=== PATIENT | male | born 1960 | race African-American/Black ===

== ENCOUNTER 2019-11-07 08:30 | Inpatient (IN) ==
[2019-11-07] MEDS ORDERED: SODIUM CHLORIDE 0.9% 1,000 ML IV STA (08:51)
[2019-11-07 09:13] LABS: Basophils # 0.1 10*3/uL (0.0-0.2); Basophils % 0.7 % (0.0-0.8); Eosinophils # 0.1 10*3/uL (0.0-0.87); Hematocrit 36.8 VOL% (42.0-52.0); Hemoglobin 12.2 GM/DL (14.0-18.0); Immature Granulocytes % 0.4 %; Immature Granulocytes Absolute 0.03 #; Lymphocytes # 1.4 10*3/uL (1.4-4.0); Lymphocytes % 18.9 % (21.2-54.2); Mean Corpuscular HGB Conc 33.2 GM/DL (32-36); Mean Corpuscular Volume 81.4 FL (87-102); Mean Platelet Volume 8.8 FL (9.6-12.0); Monocytes % 12.2 % (1.7-12.7); Neutrophils % 66.8 % (38.7-73.9); Platelet Count 474 T/CUMM (130-400); Red Blood Count 4.52 MC/CUMM (3.8-5.5); Red Cell Distribution Width 15.8 % (9.3-17.3); White Blood Count 7.2 T/CUMM (4-12)
[2019-11-07 09:21] LABS: PT Patient Result 10.4 SECS (9.6-12.2); Partial Thromboplastin Time 28.4 SECS (20.8-36.0)
[2019-11-07 09:39] LABS: Albumin 2.9 G/DL (3.4-5.0); Bilirubin,Total 0.5 MG/DL (0.2-1.0); Calcium 10.5 MG/DL (8.5-10.1); Osmolality,Calculated 251.4 MOS/KG (273-304); Total Protein 8.7 G/DL (6.4-8.3)
[2019-11-07 11:28] LABS: Apearance,Urine CLEAR (Clear); Bacteria,Urine Occasional /HPF (Few); Bilirubin,Urine Negative (Negative); Blood, Urine Negative (Negative); Glucose,Urine (UA) Negative (Negative); Ketones,Urine 5 mg/dL (Negative); Nitrite,Urine Negative (Negative); Protein,Urine Negative; RBC,Urine 2 /HPF (0-4); Squamous Epithelial Cell,Urine Occasional /HPF (0-10); Urine Color Straw (Yellow); Urine Specific Gravity 1.023 (1.001-1.035); Urine Urobilinogen < 2.0 EU/DL (0.2-1.0); WBC,Urine <1 /HPF (0-6)
[2019-11-07] MEDS: SODIUM CHLORIDE 0.9% 1,000 ML IV SCH (12:05)
[2019-11-08] MEDS: SODIUM CHLORIDE 0.9% 1,000 ML IV SCH ×5 (00:15→23:40)
[2019-11-08 05:25] LABS: Basophils # 0.1 10*3/uL (0.0-0.2); Eosinophils # 0.1 10*3/uL (0.0-0.87); Eosinophils % 0.9 % (0.00-10.9); Hematocrit 32.3 VOL% (42.0-52.0); Hemoglobin 10.5 GM/DL (14.0-18.0); Immature Granulocytes % 0.4 %; Immature Granulocytes Absolute 0.03 #; Lymphocytes # 1.3 10*3/uL (1.4-4.0); Lymphocytes % 16.9 % (21.2-54.2); Mean Corpuscular HGB Conc 32.5 GM/DL (32-36); Mean Corpuscular Volume 82.4 FL (87-102); Mean Platelet Volume 9.8 FL (9.6-12.0); Monocytes % 15.5 % (1.7-12.7); Neutrophils % 65.3 % (38.7-73.9); Platelet Count 449 T/CUMM (130-400); Red Blood Count 3.92 MC/CUMM (3.8-5.5); Red Cell Distribution Width 15.8 % (9.3-17.3)
[2019-11-08 05:54] LABS: Albumin 2.4 G/DL (3.4-5.0); Bilirubin,Total 0.7 MG/DL (0.2-1.0); Calcium 9.7 MG/DL (8.5-10.1); Osmolality,Calculated 264.2 MOS/KG (273-304); Risk Ratio 2.38; Thyroid Stimulating Hormone 0.885 uIU/ml (0.358-3.74); VLDL CHOLESTEROL 13.4 MG/DL
[2019-11-08] MEDS: POTASSIUM CHLORIDE RIDER 10 MEQ in PREMIX 1 EACH IV PRN ×4 (08:19→14:03)
[2019-11-08] MEDS: PANTOPRAZOLE 40 MG TABLET PO SCH (09:02)
[2019-11-08] MEDS ORDERED: MAGNESIUM SULF RIDER 4 GM in PREMIX 1 EACH IV PRN (10:40)
[2019-11-08] MEDS ORDERED: LIDOCAINE 4% TOP SOLN 50 ML BOTTLE ONE (11:29)
[2019-11-08] MEDS ORDERED: EPINEPHrine 1 MG/ML VIAL ONE (11:48)
[2019-11-08] MEDS ORDERED: LIDOCAINE 1%/EPI INJ 20 ML VIAL ONE (11:48)
[2019-11-08] MEDS ORDERED: SEVOFLURANE 1 UNIT/15 MINUTE INH ONE (13:06)
[2019-11-08] MEDS ORDERED: propofoL 200 MG/20 ML VIAL IV ONE (13:06)
[2019-11-08] MEDS ORDERED: SODIUM CHLORIDE 0.9% 250 ML IV ONE (13:08)
[2019-11-08] MEDS ORDERED: PHENYLEPHRINE 1 MG/10 ML SYRINGE IV ONE (13:08)
[2019-11-08] MEDS ORDERED: MIDAZOLAM 2 MG/2 ML VIAL ONE (13:08)
[2019-11-08] MEDS ORDERED: PHENYLEPHRINE 10 MG/1 ML VIAL IV ONE (13:08)
[2019-11-08] MEDS ORDERED: fentaNYL 100 MCG/2 ML VIAL ONE (13:10)
[2019-11-08] MEDS: MAGNESIUM SULF RIDER 2 GM in PREMIX 1 EACH IV PRN (14:03)
[2019-11-08] MEDS: hydrALAZINE 20 MG/1 ML VIAL IV PRN (15:12)
[2019-11-08] MEDS: NICOTINE 21 MG/24 HR PATCH TRANSDERM PRN (15:13)
[2019-11-09] MEDS: hydrALAZINE 20 MG/1 ML VIAL IV PRN (03:29)
[2019-11-09 04:58] LABS: Basophils # 0.1 10*3/uL (0.0-0.2); Basophils % 0.5 % (0.0-0.8); Eosinophils % 0.2 % (0.00-10.9); Hematocrit 31.8 VOL% (42.0-52.0); Hemoglobin 10.2 GM/DL (14.0-18.0); Immature Granulocytes % 0.5 %; Immature Granulocytes Absolute 0.05 #; Lymphocytes # 0.9 10*3/uL (1.4-4.0); Lymphocytes % 9.8 % (21.2-54.2); Mean Corpuscular HGB Conc 32.1 GM/DL (32-36); Mean Corpuscular Volume 83.7 FL (87-102); Mean Platelet Volume 9.7 FL (9.6-12.0); Monocytes % 12.1 % (1.7-12.7); Neutrophils % 76.9 % (38.7-73.9); Platelet Count 409 T/CUMM (130-400); Red Cell Distribution Width 16.2 % (9.3-17.3); White Blood Count 9.6 T/CUMM (4-12)
[2019-11-09 05:20] LABS: Alanine Aminotransferase < 9 U/L (16-61); Albumin 2.1 G/DL (3.4-5.0); Alkaline Phosphatase 66 U/L (45-117); Aspartate Amino Transferase 10 U/L (0-37); Blood Urea Nitrogen 5 MG/DL (7-18); Calcium 9.1 MG/DL (8.5-10.1); Estimated Glom Filtration Rate 109 ML/MIN; Glucose 75 MG/DL (74-106); Osmolality,Calculated 270.7 MOS/KG (273-304); Total Protein 6.5 G/DL (6.4-8.3)
[2019-11-09] MEDS: POTASSIUM CHLORIDE RIDER 10 MEQ in PREMIX 1 EACH IV PRN ×5 (05:39→12:22)
[2019-11-09] MEDS: SODIUM CHLORIDE 0.9% 1,000 ML IV SCH ×4 (08:54→22:11)
[2019-11-09] MEDS: PANTOPRAZOLE 40 MG TABLET PO SCH (09:19)
[2019-11-09] MEDS: NICOTINE 21 MG/24 HR PATCH TRANSDERM PRN (09:22)
[2019-11-09] MEDS: TAMSULOSIN 0.4 MG CAPSULE PO SCH (09:22)
[2019-11-10 05:44] LABS: Basophils # 0.1 10*3/uL (0.0-0.2); Basophils % 0.6 % (0.0-0.8); Eosinophils # 0.1 10*3/uL (0.0-0.87); Eosinophils % 1.2 % (0.00-10.9); Hematocrit 29.8 VOL% (42.0-52.0); Hemoglobin 9.7 GM/DL (14.0-18.0); Immature Granulocytes % 0.2 %; Immature Granulocytes Absolute 0.02 #; Lymphocytes % 12.3 % (21.2-54.2); Mean Corpuscular HGB Conc 32.6 GM/DL (32-36); Mean Corpuscular Volume 82.8 FL (87-102); Mean Platelet Volume 9.3 FL (9.6-12.0); Monocytes % 12.7 % (1.7-12.7); Platelet Count 372 T/CUMM (130-400); Red Cell Distribution Width 16.4 % (9.3-17.3); White Blood Count 8.4 T/CUMM (4-12)
[2019-11-10 05:47] LABS: PT Patient Result 10.9 SECS (9.6-12.2)
[2019-11-10 06:16] LABS: Alanine Aminotransferase < 9 U/L (16-61); Alkaline Phosphatase 58 U/L (45-117); Aspartate Amino Transferase 10 U/L (0-37); Blood Urea Nitrogen 6 MG/DL (7-18); Calcium 9.3 MG/DL (8.5-10.1); Estimated Glom Filtration Rate 109 ML/MIN; Glucose 84 MG/DL (74-106); Osmolality,Calculated 273.5 MOS/KG (273-304); Total Protein 6.4 G/DL (6.4-8.3)
[2019-11-10] MEDS: SODIUM CHLORIDE 0.9% 1,000 ML IV SCH ×3 (06:21→20:24)
[2019-11-10] MEDS: POTASSIUM CHLORIDE RIDER 10 MEQ in PREMIX 1 EACH IV PRN ×5 (06:46→10:56)
[2019-11-10] MEDS ORDERED: ceFAZolin 1,000 MG in SYRINGE 1 EACH IV ONE (08:00)
[2019-11-10] MEDS: hydrALAZINE 20 MG/1 ML VIAL IV PRN ×2 (09:48→19:13)
[2019-11-10] MEDS: TAMSULOSIN 0.4 MG CAPSULE PO SCH (10:37)
[2019-11-10] MEDS: PANTOPRAZOLE 40 MG TABLET PO SCH (10:38)
[2019-11-10] MEDS: LACTATED RINGERS 1,000 ML IV SCH (14:31)
[2019-11-11] MEDS: SODIUM CHLORIDE 0.9% 1,000 ML IV SCH ×4 (04:04→20:12)
[2019-11-11 05:42] LABS: Basophils % 0.4 % (0.0-0.8); Eosinophils # 0.1 10*3/uL (0.0-0.87); Eosinophils % 0.6 % (0.00-10.9); Hematocrit 28.1 VOL% (42.0-52.0); Hemoglobin 9.1 GM/DL (14.0-18.0); Immature Granulocytes % 0.3 %; Immature Granulocytes Absolute 0.03 #; Lymphocytes # 0.8 10*3/uL (1.4-4.0); Lymphocytes % 8.6 % (21.2-54.2); Mean Corpuscular HGB Conc 32.4 GM/DL (32-36); Mean Corpuscular Volume 83.9 FL (87-102); Mean Platelet Volume 9.4 FL (9.6-12.0); Monocytes % 9.5 % (1.7-12.7); Neutrophils % 80.6 % (38.7-73.9); Platelet Count 356 T/CUMM (130-400); Red Blood Count 3.35 MC/CUMM (3.8-5.5); Red Cell Distribution Width 16.5 % (9.3-17.3); White Blood Count 9.5 T/CUMM (4-12)
[2019-11-11 05:55] LABS: Calcium 8.8 MG/DL (8.5-10.1); Osmolality,Calculated 277.3 MOS/KG (273-304)
[2019-11-11] MEDS: POTASSIUM CHLORIDE RIDER 10 MEQ in PREMIX 1 EACH IV PRN ×5 (08:16→14:51)
[2019-11-11] MEDS ORDERED: METOPROLOL TARTRATE 25 MG TABLET PEG SCH (09:00)
[2019-11-11] MEDS: TAMSULOSIN 0.4 MG CAPSULE PO SCH (09:05)
[2019-11-11] MEDS: PANTOPRAZOLE 40 MG TABLET PO SCH (09:16)
[2019-11-11] MEDS: hydrALAZINE 20 MG/1 ML VIAL IV PRN (10:07)
[2019-11-11] MEDS: ACETAMINOPHEN 325 MG TABLET PO PRN (10:10)
[2019-11-11] MEDS: LACTATED RINGERS 1,000 ML IV SCH (10:40)
[2019-11-11] MEDS: NICOTINE 21 MG/24 HR PATCH TRANSDERM PRN (14:29)
[2019-11-11] MEDS: ALBUTEROL/IPRATROPIUM 3 ML NEB RESP TX SCH (20:32)
[2019-11-11] MEDS: POTASSIUM CHLORIDE 20 MEQ TABLET PO PRN (20:41)
[2019-11-11] MEDS: METOPROLOL TARTRATE 25 MG TABLET PEG SCH (20:42)
[2019-11-12] MEDS: ALBUTEROL/IPRATROPIUM 3 ML NEB RESP TX SCH ×7 (00:56→23:48)
[2019-11-12] MEDS: hydrALAZINE 20 MG/1 ML VIAL IV PRN ×3 (01:40→21:08)
[2019-11-12] MEDS: POTASSIUM CHLORIDE 20 MEQ TABLET PO PRN (01:41)
[2019-11-12] MEDS: SODIUM CHLORIDE 0.9% 1,000 ML IV SCH ×3 (03:21→20:17)
[2019-11-12] MEDS ORDERED: hydrALAZINE 20 MG/1 ML VIAL IV ONE (05:29)
[2019-11-12 06:21] LABS: Basophils % 0.5 % (0.0-0.8); Eosinophils % 0.4 % (0.00-10.9); Hematocrit 30.7 VOL% (42.0-52.0); Hemoglobin 10.2 GM/DL (14.0-18.0); Immature Granulocytes % 0.4 %; Immature Granulocytes Absolute 0.03 #; Lymphocytes # 0.5 10*3/uL (1.4-4.0); Lymphocytes % 7.4 % (21.2-54.2); Mean Corpuscular HGB Conc 33.2 GM/DL (32-36); Mean Corpuscular Volume 81.9 FL (87-102); Mean Platelet Volume 9.2 FL (9.6-12.0); Monocytes % 8.6 % (1.7-12.7); Neutrophils % 82.7 % (38.7-73.9); Platelet Count 371 T/CUMM (130-400); Red Blood Count 3.75 MC/CUMM (3.8-5.5); Red Cell Distribution Width 16.3 % (9.3-17.3); White Blood Count 7.3 T/CUMM (4-12)
[2019-11-12 06:29] LABS: Calcium 8.7 MG/DL (8.5-10.1); Osmolality,Calculated 275.5 MOS/KG (273-304)
[2019-11-12] MEDS ORDERED: POTASSIUM CHLORIDE 20 MEQ/15 ML UDCUP PO ONE (07:47)
[2019-11-12] MEDS ORDERED: SIMETHICONE DROPS 40 MG/0.6 ML 30 ML BOTTLE PO PRN (07:53)
[2019-11-12] MEDS: MORPHINE 4 MG/1 ML VIAL IV PRN ×2 (08:12→12:04)
[2019-11-12] MEDS: PANTOPRAZOLE 40 MG TABLET PO SCH (08:15)
[2019-11-12] MEDS: TAMSULOSIN 0.4 MG CAPSULE PO SCH (08:15)
[2019-11-12] MEDS: METOPROLOL TARTRATE 25 MG TABLET PEG SCH ×2 (08:16→20:17)
[2019-11-12] MEDS: POTASSIUM CHLORIDE RIDER 10 MEQ in PREMIX 1 EACH IV PRN ×8 (08:17→19:42)
[2019-11-12] MEDS ORDERED: SIMETHICONE CHEW 80 MG TABLET PO PRN (08:27)
[2019-11-12] MEDS: MAGNESIUM SULF RIDER 2 GM in PREMIX 1 EACH IV PRN (09:00)
[2019-11-12] MEDS: ONDANSETRON 4 MG/2 ML VIAL IV PRN (15:23)
[2019-11-13] MEDS: ALBUTEROL/IPRATROPIUM 3 ML NEB RESP TX SCH ×6 (03:01→23:33)
[2019-11-13] MEDS: SODIUM CHLORIDE 0.9% 1,000 ML IV SCH ×3 (04:40→21:05)
[2019-11-13 05:08] LABS: Basophils % 0.4 % (0.0-0.8); Eosinophils # 0.1 10*3/uL (0.0-0.87); Eosinophils % 0.7 % (0.00-10.9); Hematocrit 28.5 VOL% (42.0-52.0); Hemoglobin 9.4 GM/DL (14.0-18.0); Immature Granulocytes % 0.3 %; Immature Granulocytes Absolute 0.02 #; Lymphocytes # 0.6 10*3/uL (1.4-4.0); Lymphocytes % 7.3 % (21.2-54.2); Mean Corpuscular Volume 82.1 FL (87-102); Mean Platelet Volume 9.6 FL (9.6-12.0); Neutrophils % 74.3 % (38.7-73.9); Platelet Count 337 T/CUMM (130-400); Red Blood Count 3.47 MC/CUMM (3.8-5.5); Red Cell Distribution Width 16.3 % (9.3-17.3); White Blood Count 7.5 T/CUMM (4-12)
[2019-11-13 05:31] LABS: Hypochromasia 1+; Lymphocytes 11 % (20-55); Platelet Estimate Adequate; Segmented Neutrophils 75 % (50-85); Target Cells Few; Total Cells Counted 100
[2019-11-13 05:36] LABS: Calcium 8.1 MG/DL (8.5-10.1); Osmolality,Calculated 279.3 MOS/KG (273-304)
[2019-11-13 05:43] LABS: Prealbumin 3.6 MG/DL (20-40)
[2019-11-13] MEDS: METOPROLOL TARTRATE 25 MG TABLET PEG SCH ×2 (08:10→21:07)
[2019-11-13] MEDS: PANTOPRAZOLE 40 MG TABLET PO SCH (08:10)
[2019-11-13] MEDS: TAMSULOSIN 0.4 MG CAPSULE PO SCH (08:10)
[2019-11-13] MEDS: POTASSIUM CHLORIDE RIDER 10 MEQ in PREMIX 1 EACH IV PRN ×2 (08:10→09:11)
[2019-11-13] MEDS: MAGNESIUM SULF RIDER 2 GM in PREMIX 1 EACH IV PRN (08:11)
[2019-11-13] MEDS: NICOTINE 21 MG/24 HR PATCH TRANSDERM PRN (09:51)
[2019-11-13] MEDS: hydrALAZINE 20 MG/1 ML VIAL IV PRN (19:05)
[2019-11-13] MEDS: ACETAMINOPHEN 325 MG TABLET PO PRN (23:40)
[2019-11-14] MEDS: SODIUM CHLORIDE 0.9% 1,000 ML IV SCH ×4 (00:52→14:35)
[2019-11-14] MEDS: ALBUTEROL/IPRATROPIUM 3 ML NEB RESP TX SCH ×5 (03:10→19:19)
[2019-11-14 04:40] LABS: Basophils % 0.1 % (0.0-0.8); Eosinophils % 0.3 % (0.00-10.9); Immature Granulocytes % 0.3 %; Immature Granulocytes Absolute 0.02 #; Lymphocytes # 0.7 10*3/uL (1.4-4.0); Lymphocytes % 9.1 % (21.2-54.2); Mean Corpuscular HGB Conc 33.3 GM/DL (32-36); Mean Platelet Volume 9.3 FL (9.6-12.0); Monocytes % 16.8 % (1.7-12.7); Neutrophils % 73.4 % (38.7-73.9); Platelet Count 341 T/CUMM (130-400); Red Blood Count 3.66 MC/CUMM (3.8-5.5); Red Cell Distribution Width 16.4 % (9.3-17.3); White Blood Count 7.4 T/CUMM (4-12)
[2019-11-14 05:04] LABS: Band Neutrophils 3 % (0-10); Hypochromasia 1+; Lymphocytes 7 % (20-55); Segmented Neutrophils 72 % (50-85); Target Cells Few; Total Cells Counted 100
[2019-11-14 05:05] LABS: Anisocytosis 1+; Microcytosis 1+
[2019-11-14] MEDS: hydrALAZINE 20 MG/1 ML VIAL IV PRN ×2 (05:06→18:32)
[2019-11-14 05:15] LABS: Calcium 8.6 MG/DL (8.5-10.1); Osmolality,Calculated 280.1 MOS/KG (273-304)
[2019-11-14] MEDS: POTASSIUM CHLORIDE RIDER 10 MEQ in PREMIX 1 EACH IV PRN ×3 (06:21→09:49)
[2019-11-14] MEDS ORDERED: MAGNESIUM SULF RIDER 4 GM in PREMIX 1 EACH IV ONE (07:39)
[2019-11-14] MEDS: NICOTINE 21 MG/24 HR PATCH TRANSDERM PRN (08:45)
[2019-11-14] MEDS: POTASSIUM CHLORIDE 20 MEQ/15 ML UDCUP PER TUBE SCH ×3 (08:46→17:14)
[2019-11-14] MEDS: METOPROLOL TARTRATE 25 MG TABLET PEG SCH ×2 (08:47→20:52)
[2019-11-14] MEDS: PANTOPRAZOLE 40 MG TABLET PO SCH (08:47)
[2019-11-14] MEDS: TAMSULOSIN 0.4 MG CAPSULE PO SCH ×2 (08:47→20:52)
[2019-11-14] MEDS: MORPHINE 4 MG/1 ML VIAL IV PRN (08:50)
[2019-11-14 09:42] LABS: Apearance,Urine CLOUDY (Clear); Bacteria,Urine Occasional /HPF (Few); Bilirubin,Urine Negative (Negative); Blood, Urine Large mg/dL (Negative); Glucose,Urine (UA) Negative (Negative); Hyaline Casts,Urine 3 /LPF (0-3); Ketones,Urine 20 mg/dL (Negative); Mucus,Urine Occasional /LPF (Occasional); Nitrite,Urine Negative (Negative); Protein,Urine 30 MG/DL; RBC,Urine 408 /HPF (0-4); Squamous Epithelial Cell,Urine Occasional /HPF (0-10); Urine Color Yellow (Yellow); Urine Specific Gravity 1.019 (1.001-1.035); Urine Urobilinogen < 2.0 EU/DL (0.2-1.0); WBC,Urine 19 /HPF (0-6)
[2019-11-14] MEDS: PIPERACILLIN/TAZOBACTAM 3,375 MG in SODIUM CHLORIDE 0.9% 100 ML IV SCH ×2 (12:53→20:52)
[2019-11-14] MEDS ORDERED: POTASSIUM CHLORIDE 20 MEQ/15 ML UDCUP ONE (17:11)
[2019-11-15] MEDS: ALBUTEROL/IPRATROPIUM 3 ML NEB RESP TX SCH ×7 (00:56→23:40)
[2019-11-15] MEDS: PIPERACILLIN/TAZOBACTAM 3,375 MG in SODIUM CHLORIDE 0.9% 100 ML IV SCH ×3 (03:36→20:10)
[2019-11-15 04:46] LABS: Basophils % 0.6 % (0.0-0.8); Eosinophils % 0.6 % (0.00-10.9); Hematocrit 27.6 VOL% (42.0-52.0); Immature Granulocytes % 0.3 %; Immature Granulocytes Absolute 0.02 #; Lymphocytes # 0.9 10*3/uL (1.4-4.0); Lymphocytes % 12.1 % (21.2-54.2); Mean Corpuscular HGB Conc 32.6 GM/DL (32-36); Mean Corpuscular Volume 81.4 FL (87-102); Mean Platelet Volume 9.2 FL (9.6-12.0); Monocytes % 22.1 % (1.7-12.7); Neutrophils % 64.3 % (38.7-73.9); Platelet Count 335 T/CUMM (130-400); Red Blood Count 3.39 MC/CUMM (3.8-5.5); Red Cell Distribution Width 16.7 % (9.3-17.3); White Blood Count 7.1 T/CUMM (4-12)
[2019-11-15 05:09] LABS: Band Neutrophils 2 % (0-10); Eosinophils 1 % (0-10); Lymphocytes 8 % (20-55); Platelet Estimate Adequate; Segmented Neutrophils 65 % (50-85); Total Cells Counted 100
[2019-11-15 05:10] LABS: Hypochromasia 1+; Microcytosis Slight; Ovalocytes Slight
[2019-11-15 05:18] LABS: Calcium 8.3 MG/DL (8.5-10.1); Osmolality,Calculated 278.3 MOS/KG (273-304)
[2019-11-15] MEDS: PANTOPRAZOLE 40 MG TABLET PO SCH (09:39)
[2019-11-15] MEDS: TAMSULOSIN 0.4 MG CAPSULE PO SCH ×2 (09:39→20:10)
[2019-11-15] MEDS: METOPROLOL TARTRATE 25 MG TABLET PEG SCH ×2 (09:39→20:10)
[2019-11-15] MEDS: SODIUM CHLORIDE 0.9% 1,000 ML IV SCH ×2 (09:42→23:06)
[2019-11-15] MEDS: POTASSIUM CHLORIDE RIDER 10 MEQ in PREMIX 1 EACH IV PRN ×2 (09:47→10:54)
[2019-11-15] MEDS: MAGNESIUM SULF RIDER 2 GM in PREMIX 1 EACH IV PRN (09:48)
[2019-11-15] MEDS: hydrALAZINE 20 MG/1 ML VIAL IV PRN ×2 (14:15→20:35)
[2019-11-16] MEDS: hydrALAZINE 20 MG/1 ML VIAL IV PRN (03:07)
[2019-11-16] MEDS: ALBUTEROL/IPRATROPIUM 3 ML NEB RESP TX SCH ×5 (03:25→19:35)
[2019-11-16] MEDS: PIPERACILLIN/TAZOBACTAM 3,375 MG in SODIUM CHLORIDE 0.9% 100 ML IV SCH ×3 (05:09→20:13)
[2019-11-16 05:38] LABS: Basophils % 0.4 % (0.0-0.8); Eosinophils # 0.1 10*3/uL (0.0-0.87); Eosinophils % 0.8 % (0.00-10.9); Hematocrit 27.4 VOL% (42.0-52.0); Hemoglobin 9.2 GM/DL (14.0-18.0); Immature Granulocytes % 0.3 %; Immature Granulocytes Absolute 0.03 #; Lymphocytes % 10.8 % (21.2-54.2); Mean Corpuscular HGB Conc 33.6 GM/DL (32-36); Mean Corpuscular Volume 79.7 FL (87-102); Mean Platelet Volume 9.6 FL (9.6-12.0); Monocytes % 14.4 % (1.7-12.7); Neutrophils % 73.3 % (38.7-73.9); Platelet Count 370 T/CUMM (130-400); Red Blood Count 3.44 MC/CUMM (3.8-5.5); Red Cell Distribution Width 16.6 % (9.3-17.3); White Blood Count 9.5 T/CUMM (4-12)
[2019-11-16 06:15] LABS: Calcium 8.7 MG/DL (8.5-10.1); Osmolality,Calculated 279.1 MOS/KG (273-304)
[2019-11-16 06:17] LABS: Prealbumin < 3.0 MG/DL (20-40)
[2019-11-16] MEDS: MAGNESIUM SULF RIDER 2 GM in PREMIX 1 EACH IV PRN (06:27)
[2019-11-16] MEDS: POTASSIUM CHLORIDE 20 MEQ TABLET PO PRN ×4 (06:28→18:37)
[2019-11-16] MEDS: METOPROLOL TARTRATE 25 MG TABLET PEG SCH ×2 (09:09→20:13)
[2019-11-16] MEDS: PANTOPRAZOLE 40 MG TABLET PO SCH (09:09)
[2019-11-16] MEDS: TAMSULOSIN 0.4 MG CAPSULE PO SCH ×2 (09:09→20:13)
[2019-11-16] MEDS: POTASSIUM CHLORIDE INJ 30 MEQ in SODIUM CHLORIDE 0.9% 1,000 ML IV SCH (13:18)
[2019-11-17] MEDS: ALBUTEROL/IPRATROPIUM 3 ML NEB RESP TX SCH ×7 (00:15→23:45)
[2019-11-17 05:02] LABS: Calcium 8.6 MG/DL (8.5-10.1); Osmolality,Calculated 270.7 MOS/KG (273-304)
[2019-11-17] MEDS: PIPERACILLIN/TAZOBACTAM 3,375 MG in SODIUM CHLORIDE 0.9% 100 ML IV SCH ×3 (05:14→20:17)
[2019-11-17] MEDS: POTASSIUM CHLORIDE 20 MEQ TABLET PO PRN (05:49)
[2019-11-17] MEDS: MAGNESIUM SULF RIDER 2 GM in PREMIX 1 EACH IV PRN (05:49)
[2019-11-17] MEDS: POTASSIUM CHLORIDE INJ 30 MEQ in SODIUM CHLORIDE 0.9% 1,000 ML IV SCH ×4 (06:36→21:35)
[2019-11-17] MEDS: PANTOPRAZOLE 40 MG TABLET PO SCH (08:58)
[2019-11-17] MEDS: METOPROLOL TARTRATE 25 MG TABLET PEG SCH ×2 (08:58→20:17)
[2019-11-17] MEDS: TAMSULOSIN 0.4 MG CAPSULE PO SCH ×2 (08:58→20:17)
[2019-11-17] MEDS: ONDANSETRON 4 MG/2 ML VIAL IV PRN (15:12)
[2019-11-18] MEDS: ALBUTEROL/IPRATROPIUM 3 ML NEB RESP TX SCH ×5 (02:43→20:04)
[2019-11-18] MEDS: PIPERACILLIN/TAZOBACTAM 3,375 MG in SODIUM CHLORIDE 0.9% 100 ML IV SCH ×3 (04:00→20:41)
[2019-11-18] MEDS: TAMSULOSIN 0.4 MG CAPSULE PO SCH ×2 (10:26→20:41)
[2019-11-18] MEDS: METOPROLOL TARTRATE 25 MG TABLET PEG SCH ×2 (10:26→20:41)
[2019-11-18] MEDS: PANTOPRAZOLE 40 MG TABLET PO SCH (10:26)
[2019-11-18] MEDS: POTASSIUM CHLORIDE INJ 30 MEQ in SODIUM CHLORIDE 0.9% 1,000 ML IV SCH (11:58)
[2019-11-19] MEDS: ALBUTEROL/IPRATROPIUM 3 ML NEB RESP TX SCH ×7 (01:36→22:22)
[2019-11-19] MEDS: PIPERACILLIN/TAZOBACTAM 3,375 MG in SODIUM CHLORIDE 0.9% 100 ML IV SCH ×2 (05:27→13:14)
[2019-11-19] MEDS: POTASSIUM CHLORIDE INJ 30 MEQ in SODIUM CHLORIDE 0.9% 1,000 ML IV SCH ×3 (05:33→09:31)
[2019-11-19] MEDS: PANTOPRAZOLE 40 MG TABLET PO SCH (09:28)
[2019-11-19] MEDS: TAMSULOSIN 0.4 MG CAPSULE PO SCH ×2 (09:28→20:44)
[2019-11-19] MEDS: METOPROLOL TARTRATE 25 MG TABLET PEG SCH ×2 (09:28→20:44)
[2019-11-20] MEDS: ALBUTEROL/IPRATROPIUM 3 ML NEB RESP TX SCH ×5 (02:32→19:25)
[2019-11-20 05:13] LABS: Calcium 8.5 MG/DL (8.5-10.1); Prealbumin 5.3 MG/DL (20-40)
[2019-11-20] MEDS: MAGNESIUM SULF RIDER 2 GM in PREMIX 1 EACH IV PRN ×2 (06:23→08:50)
[2019-11-20] MEDS: POTASSIUM CHLORIDE 20 MEQ TABLET PO PRN ×4 (06:23→14:42)
[2019-11-20] MEDS: TAMSULOSIN 0.4 MG CAPSULE PO SCH ×2 (08:51→20:38)
[2019-11-20] MEDS: PANTOPRAZOLE 40 MG TABLET PO SCH (08:51)
[2019-11-20] MEDS: METOPROLOL TARTRATE 25 MG TABLET PEG SCH ×2 (08:51→20:38)
[2019-11-20] MEDS: POTASSIUM CHLORIDE 10 MEQ TABLET PO SCH (20:38)
[2019-11-21] MEDS: ALBUTEROL/IPRATROPIUM 3 ML NEB RESP TX SCH ×7 (00:20→23:10)
[2019-11-21] MEDS: TAMSULOSIN 0.4 MG CAPSULE PO SCH ×2 (09:13→20:31)
[2019-11-21] MEDS: METOPROLOL TARTRATE 25 MG TABLET PEG SCH ×2 (09:13→20:32)
[2019-11-21] MEDS: PANTOPRAZOLE 40 MG TABLET PO SCH (09:13)
[2019-11-21] MEDS: POTASSIUM CHLORIDE 10 MEQ TABLET PO SCH ×2 (09:13→20:32)
[2019-11-22] MEDS: ALBUTEROL/IPRATROPIUM 3 ML NEB RESP TX SCH ×6 (03:00→23:15)
[2019-11-22] MEDS: METOPROLOL TARTRATE 25 MG TABLET PEG SCH ×2 (09:41→21:39)
[2019-11-22] MEDS: PANTOPRAZOLE 40 MG TABLET PO SCH (09:41)
[2019-11-22] MEDS: POTASSIUM CHLORIDE 10 MEQ TABLET PO SCH ×2 (09:41→21:39)
[2019-11-22] MEDS: TAMSULOSIN 0.4 MG CAPSULE PO SCH ×2 (09:41→21:39)
[2019-11-23] MEDS: ALBUTEROL/IPRATROPIUM 3 ML NEB RESP TX SCH ×4 (02:50→18:17)
[2019-11-23 05:23] LABS: Calcium 8.4 MG/DL (8.5-10.1); Osmolality,Calculated 266.1 MOS/KG (273-304)
[2019-11-23] MEDS: MAGNESIUM SULF RIDER 2 GM in PREMIX 1 EACH IV PRN (05:37)
[2019-11-23] MEDS: POTASSIUM CHLORIDE 20 MEQ TABLET PO PRN ×3 (05:37→12:15)
[2019-11-23] MEDS: METOPROLOL TARTRATE 25 MG TABLET PEG SCH (08:47)
[2019-11-23] MEDS: PANTOPRAZOLE 40 MG TABLET PO SCH (08:47)
[2019-11-23] MEDS: TAMSULOSIN 0.4 MG CAPSULE PO SCH (08:48)
[2019-11-23] MEDS: POTASSIUM CHLORIDE 10 MEQ TABLET PO SCH (08:48)
[2019-11-23 16:01] VITALS: BP 120/87
== END 2019-11-23 18:53 | disposition home health service (06) | DRG 11 ==
LOC: N.ED 08:30 → SUATTDRO 11:59 → N.EDINP 11:59 → N.4E 13:12 → N.CC 11-08 13:39 → N.4E 11-19 17:01
PROVIDERS: ADMIT Internal Medicine; ATTEND Emergency Medicine
PROC: EGDWPEG (ICD-10-PCS; 2019-11-10 12:20)

== ENCOUNTER 2019-12-12 02:28 | Observation (INO) ==
[2019-12-12] MEDS ORDERED: ONDANSETRON 4 MG/2 ML VIAL IV PRN (03:37)
[2019-12-12] MEDS ORDERED: ALBUTEROL/IPRATROPIUM 3 ML NEB RESP TX PRN (03:37)
[2019-12-12] MEDS ORDERED: hydrALAZINE 20 MG/1 ML VIAL IV STA (03:41)
[2019-12-12] MEDS: DEXTROSE 5% NACL 0.45% 1,000 ML IV SCH ×3 (04:45→13:18)
[2019-12-12 05:03] LABS: Basophils # 0.1 10*3/uL (0.0-0.2); Basophils % 0.4 % (0.0-0.8); Eosinophils # 0.2 10*3/uL (0.0-0.87); Eosinophils % 1.3 % (0.00-10.9); Hematocrit 27.8 VOL% (42.0-52.0); Immature Granulocytes % 0.3 %; Immature Granulocytes Absolute 0.03 #; Lymphocytes # 2.7 10*3/uL (1.4-4.0); Lymphocytes % 23.6 % (21.2-54.2); Mean Corpuscular HGB Conc 32.4 GM/DL (32-36); Mean Corpuscular Volume 79.4 FL (87-102); Monocytes % 13.8 % (1.7-12.7); Neutrophils % 60.6 % (38.7-73.9); Platelet Count 564 T/CUMM (130-400); White Blood Count 11.4 T/CUMM (4-12)
[2019-12-12] MEDS ORDERED: INFLUENZA VIRUS VACCINE 0.5 ML SYRINGE IM ONE (05:12)
[2019-12-12 05:32] LABS: Alanine Aminotransferase 10 U/L (16-61); Albumin 2.4 G/DL (3.4-5.0); Alkaline Phosphatase 66 U/L (45-117); Aspartate Amino Transferase 10 U/L (0-37); Bilirubin,Total < 0.39 MG/DL (0.2-1.0); Blood Urea Nitrogen 13 MG/DL (7-18); Calcium 9.8 MG/DL (8.5-10.1); Estimated Glom Filtration Rate 109 ML/MIN; Glucose 89 MG/DL (74-106); Osmolality,Calculated 271.8 MOS/KG (273-304); Total Protein 7.7 G/DL (6.4-8.3)
[2019-12-12] MEDS ORDERED: LIDOCAINE 1%/EPI INJ 20 ML VIAL ONE (06:15)
[2019-12-12] MEDS ORDERED: KETOROLAC 15 MG/1 ML VIAL IV ONE (09:36)
[2019-12-12] MEDS ORDERED: DIAZEPAM 5 MG TABLET PO ONE (09:36)
[2019-12-12] MEDS ORDERED: KETAMINE 500 MG/10 ML VIAL ONE (13:15)
[2019-12-12 18:14] VITALS: BP 136/74
== END 2019-12-12 18:03 | disposition home or self-care (01) ==
LOC: N.ED 02:28 → N.EDINP 02:28 → N.3E 04:06
PROVIDERS: ADMIT Otolaryngology; ATTEND Otolaryngology

== ENCOUNTER 2020-10-10 05:53 | Inpatient (IN) ==
[2020-10-07 13:13] LABS: Calcium 9.2 MG/DL (8.5-10.1); Osmolality,Calculated 278.7 MOS/KG (273-304)
[2020-10-07 13:32] LABS: Basophils % 0.5 % (0.0-0.8); Eosinophils # 0.1 10*3/uL (0.0-0.87); Eosinophils % 1.8 % (0.00-10.9); Hematocrit 29.7 VOL% (42.0-52.0); Hemoglobin 10.2 GM/DL (14.0-18.0); Immature Granulocytes % 0.2 %; Immature Granulocytes Absolute 0.01 #; Lymphocytes # 0.7 10*3/uL (1.4-4.0); Lymphocytes % 12.5 % (21.2-54.2); Mean Corpuscular HGB Conc 34.3 GM/DL (32-36); Mean Corpuscular Volume 93.4 FL (87-102); Mean Platelet Volume 10.1 FL (9.6-12.0); Monocytes % 18.1 % (1.7-12.7); Neutrophils % 66.9 % (38.7-73.9); Platelet Count 271 T/CUMM (130-400); Red Blood Count 3.18 MC/CUMM (3.8-5.5); Red Cell Distribution Width 16.4 % (9.3-17.3); White Blood Count 5.7 T/CUMM (4-12)
[2020-10-07 14:36] LABS: Lymphocytes 14 % (20-55); Nucleated Red Blood Cells 1 (0-5); Platelet Estimate Normal; Segmented Neutrophils 74 % (50-85); Target Cells Slight; Total Cells Counted 100
[2020-10-10] MEDS ORDERED: LIDOCAINE 1% 5 ML VIAL ONE (06:02)
[2020-10-10] MEDS ORDERED: DEXAMETHASONE 4 MG/1 ML VIAL ONE (06:02)
[2020-10-10] MEDS ORDERED: ROPIVACAINE 0.5% 30 ML VIAL ONE (06:02)
[2020-10-10] MEDS ORDERED: ALVIMOPAN 12 MG CAPSULE PO ONE (06:30)
[2020-10-10] MEDS ORDERED: cefOXitin 1,000 MG in SYRINGE 1 EACH IV ONE (06:30)
[2020-10-10] MEDS ORDERED: MIDAZOLAM 2 MG/2 ML VIAL ONE (07:00)
[2020-10-10] MEDS ORDERED: LACTATED RINGERS 1,000 ML IV SCH (07:00)
[2020-10-10] MEDS ORDERED: DEXMEDETOMIDINE 200 MCG/2 ML VIAL ONE (07:00)
[2020-10-10] MEDS ORDERED: SEVOFLURANE 1 UNIT/15 MINUTE INH ONE ×8 (08:17→11:04)
[2020-10-10] MEDS ORDERED: PHENYLEPHRINE 1 MG/10 ML SYRINGE IV ONE (08:17)
[2020-10-10] MEDS ORDERED: ONDANSETRON 4 MG/2 ML VIAL ONE ×2 (08:17→11:03)
[2020-10-10] MEDS ORDERED: LACTATED RINGERS 1,000 ML IV ONE ×2 (08:17→10:05)
[2020-10-10] MEDS ORDERED: ROCURONIUM 50 MG/5 ML VIAL IV ONE ×2 (08:18→10:06)
[2020-10-10] MEDS ORDERED: LIDOCAINE 2% 5 ML VIAL ONE (08:18)
[2020-10-10] MEDS ORDERED: propofoL 200 MG/20 ML VIAL IV ONE (08:18)
[2020-10-10] MEDS ORDERED: fentaNYL 100 MCG/2 ML VIAL ONE (08:34)
[2020-10-10] MEDS ORDERED: NEOSTIGMINE 10 MG/10 ML VIAL ONE (10:17)
[2020-10-10] MEDS ORDERED: GLYCOPYRROLATE 0.4 MG/2 ML VIAL ONE (10:17)
[2020-10-10] MEDS ORDERED: SUGAMMADEX 200 MG/2 ML VIAL IV ONE (10:40)
[2020-10-10] MEDS ORDERED: ONDANSETRON 4 MG/2 ML VIAL IV PRN ×2 (10:55→11:05)
[2020-10-10] MEDS ORDERED: MEPERIDINE 25 MG/1 ML VIAL ONE (11:03)
[2020-10-10] MEDS ORDERED: MEPERIDINE 25 MG/1 ML VIAL IV PRN (11:05)
[2020-10-10] MEDS ORDERED: diphenhydrAMINE 50 MG/1 ML VIAL IV PRN (11:05)
[2020-10-10] MEDS ORDERED: PROMETHAZINE INJ 25 MG in SODIUM CHLORIDE 0.9% 50 ML IV PRN (11:05)
[2020-10-10 11:13] LABS: Bilirubin,Urine Negative (Negative); Blood, Urine Negative (Negative); Glucose,Urine (UA) Negative (Negative); Ketones,Urine Negative (Negative); Nitrite,Urine Negative (Negative); Protein,Urine Negative; RBC,Urine <1 /HPF (0-4); Urine Appearance CLEAR (Clear); Urine Color Yellow (Yellow); Urine Specific Gravity 1.009 (1.001-1.035); Urine Urobilinogen < 2.0 EU/DL (0.2-1.0); WBC,Urine <1 /HPF (0-6)
[2020-10-10] MEDS: HYDROmorphone 2 MG/1 ML VIAL IV PRN ×9 (11:15→23:46)
[2020-10-10] MEDS: DEXTROSE 5% LACTATED RINGERS 1,000 ML IV SCH ×2 (11:48→20:34)
[2020-10-10] MEDS ORDERED: INFLUENZA VIRUS VACCINE 0.5 ML SYRINGE IM ONE (13:17)
[2020-10-10 13:52] LABS: Hematocrit 32.1 VOL% (42.0-52.0); Hemoglobin 10.7 GM/DL (14.0-18.0)
[2020-10-10] MEDS ORDERED: ALBUTEROL 2.5 MG/3 ML NEB RESP TX PRN (14:09)
[2020-10-10] MEDS: cefOXitin 2,000 MG in SYRINGE 1 EACH IV SCH ×2 (14:19→20:51)
[2020-10-10 15:39] LABS: Basophils % 0.2 % (0.0-0.8); Eosinophils % 0.1 % (0.00-10.9); Hemoglobin 9.6 GM/DL (14.0-18.0); Immature Granulocytes % 0.4 %; Immature Granulocytes Absolute 0.04 #; Lymphocytes # 0.4 10*3/uL (1.4-4.0); Lymphocytes % 4.3 % (21.2-54.2); Mean Corpuscular HGB Conc 33.1 GM/DL (32-36); Mean Corpuscular Volume 95.1 FL (87-102); Mean Platelet Volume 8.4 FL (9.6-12.0); Monocytes % 10.8 % (1.7-12.7); Neutrophils % 84.2 % (38.7-73.9); Platelet Count 299 T/CUMM (130-400); Red Blood Count 3.05 MC/CUMM (3.8-5.5); Red Cell Distribution Width 16.2 % (9.3-17.3); White Blood Count 9.8 T/CUMM (4-12)
[2020-10-10 16:05] LABS: Calcium 8.5 MG/DL (8.5-10.1); Osmolality,Calculated 279.8 MOS/KG (273-304)
[2020-10-10 16:45] LABS: Band Neutrophils 2 % (0-10); Lymphocytes 4 % (20-55); Segmented Neutrophils 80 % (50-85); Total Cells Counted 100
[2020-10-10 16:47] LABS: Anisocytosis 1+; Microcytosis Slight; Platelet Estimate Adequate
[2020-10-10 18:42] LABS: Hematocrit 28.1 VOL% (42.0-52.0); Hemoglobin 9.4 GM/DL (14.0-18.0)
[2020-10-10] MEDS: diphenhydrAMINE 50 MG/1 ML VIAL IV PRN (20:34)
[2020-10-11] MEDS: HYDROmorphone 2 MG/1 ML VIAL IV PRN ×6 (02:07→21:36)
[2020-10-11] MEDS: cefOXitin 2,000 MG in SYRINGE 1 EACH IV SCH (04:27)
[2020-10-11] MEDS ORDERED: cefOXitin 2,000 MG in SYRINGE 1 EACH IV SCH (04:30)
[2020-10-11] MEDS: DEXTROSE 5% LACTATED RINGERS 1,000 ML IV SCH ×2 (04:31→14:29)
[2020-10-11] MEDS: diphenhydrAMINE 50 MG/1 ML VIAL IV PRN ×2 (05:44→21:55)
[2020-10-11 05:56] LABS: Basophils % 0.2 % (0.0-0.8); Eosinophils % 0.1 % (0.00-10.9); Hematocrit 24.6 VOL% (42.0-52.0); Hemoglobin 8.4 GM/DL (14.0-18.0); Immature Granulocytes % 0.6 %; Immature Granulocytes Absolute 0.08 #; Lymphocytes # 0.7 10*3/uL (1.4-4.0); Lymphocytes % 5.2 % (21.2-54.2); Mean Corpuscular HGB Conc 34.1 GM/DL (32-36); Mean Corpuscular Volume 92.8 FL (87-102); Mean Platelet Volume 8.6 FL (9.6-12.0); Neutrophils % 82.9 % (38.7-73.9); Platelet Count 257 T/CUMM (130-400); Red Blood Count 2.65 MC/CUMM (3.8-5.5); Red Cell Distribution Width 16.1 % (9.3-17.3)
[2020-10-11 06:16] LABS: Calcium 8.3 MG/DL (8.5-10.1); Osmolality,Calculated 277.7 MOS/KG (273-304)
[2020-10-11] MEDS: ENOXAPARIN 40 MG/0.4 ML SYRINGE SUBCUT SCH (06:24)
[2020-10-11 07:51] LABS: Band Neutrophils 11 % (0-10); Lymphocytes 3 % (20-55); Segmented Neutrophils 78 % (50-85); Total Cells Counted 100
[2020-10-11 07:52] LABS: Hypochromasia 2+; Microcytosis 1+; Platelet Estimate Normal
[2020-10-11] MEDS: POTASSIUM PHOS/SOD PHOS 250 MG TABLET PO SCH ×3 (09:47→21:27)
[2020-10-11] MEDS: PANTOPRAZOLE 40 MG VIAL IV SCH (09:47)
[2020-10-11] MEDS: HYDROcod/ACETAMIN 7.5-325 MG/15 ML UDCUP PO PRN ×4 (09:49→22:30)
[2020-10-11] MEDS ORDERED: ALBUTEROL 2.5 MG/3 ML NEB RESP TX PRN (11:00)
[2020-10-11] MEDS: NIFEdipine 10 MG CAPSULE PO SCH ×2 (16:00→21:27)
[2020-10-12] MEDS: DEXTROSE 5% LACTATED RINGERS 1,000 ML IV SCH ×3 (01:34→20:04)
[2020-10-12] MEDS: HYDROmorphone 2 MG/1 ML VIAL IV PRN ×4 (04:27→21:23)
[2020-10-12 05:43] LABS: Basophils % 0.3 % (0.0-0.8); Eosinophils # 0.1 10*3/uL (0.0-0.87); Eosinophils % 0.6 % (0.00-10.9); Hematocrit 22.4 VOL% (42.0-52.0); Hemoglobin 7.4 GM/DL (14.0-18.0); Immature Granulocytes % 0.8 %; Immature Granulocytes Absolute 0.08 #; Lymphocytes # 0.5 10*3/uL (1.4-4.0); Lymphocytes % 5.1 % (21.2-54.2); Mean Corpuscular Volume 94.5 FL (87-102); Mean Platelet Volume 8.9 FL (9.6-12.0); Monocytes % 13.2 % (1.7-12.7); Platelet Count 258 T/CUMM (130-400); Red Blood Count 2.37 MC/CUMM (3.8-5.5); White Blood Count 10.4 T/CUMM (4-12)
[2020-10-12 06:12] LABS: Albumin 2.7 G/DL (3.4-5.0); Bilirubin,Direct 0.1 MG/DL (0.0-0.20); Bilirubin,Indirect 0.5 MG/DL (0.0-1.0); Bilirubin,Total 0.6 MG/DL (0.2-1.0); Calcium 8.3 MG/DL (8.5-10.1); Osmolality,Calculated 271.8 MOS/KG (273-304); Total Protein 6.6 G/DL (6.4-8.3)
[2020-10-12] MEDS: ENOXAPARIN 40 MG/0.4 ML SYRINGE SUBCUT SCH (07:17)
[2020-10-12 08:38] LABS: Hypochromasia 2+; Lymphocytes 4 % (20-55); Platelet Estimate Normal; Segmented Neutrophils 85 % (50-85); Total Cells Counted 100
[2020-10-12 08:39] LABS: Anisocytosis Slight; Macrocytosis Slight
[2020-10-12] MEDS: HYDROcod/ACETAMIN 7.5-325 MG/15 ML UDCUP PO PRN ×3 (09:03→20:04)
[2020-10-12] MEDS: PANTOPRAZOLE 40 MG VIAL IV SCH (09:04)
[2020-10-12] MEDS: diphenhydrAMINE 50 MG/1 ML VIAL IV PRN ×3 (09:05→22:43)
[2020-10-12] MEDS: POTASSIUM PHOS/SOD PHOS 250 MG TABLET PO SCH ×3 (09:05→20:04)
[2020-10-12] MEDS: NIFEdipine 10 MG CAPSULE PO SCH ×3 (09:05→20:05)
[2020-10-12] MEDS ORDERED: SODIUM CHLORIDE 0.9% 1,000 ML IV PRN (12:05)
[2020-10-13] MEDS: HYDROmorphone 2 MG/1 ML VIAL IV PRN ×4 (01:50→21:26)
[2020-10-13] MEDS: HYDROcod/ACETAMIN 7.5-325 MG/15 ML UDCUP PO PRN ×3 (05:29→20:19)
[2020-10-13 07:36] LABS: Hematocrit 28.6 VOL% (42.0-52.0)
[2020-10-13] MEDS: NIFEdipine 10 MG CAPSULE PO SCH (08:10)
[2020-10-13] MEDS: ENOXAPARIN 40 MG/0.4 ML SYRINGE SUBCUT SCH (08:11)
[2020-10-13] MEDS: POTASSIUM PHOS/SOD PHOS 250 MG TABLET PO SCH ×3 (08:11→20:20)
[2020-10-13] MEDS: diphenhydrAMINE 50 MG/1 ML VIAL IV PRN (08:13)
[2020-10-13] MEDS: PANTOPRAZOLE 40 MG VIAL IV SCH (08:18)
[2020-10-13] MEDS: DEXTROSE 5% LACTATED RINGERS 1,000 ML IV SCH ×2 (12:58)
[2020-10-13] MEDS: hydrALAZINE 20 MG/1 ML VIAL IV PRN ×2 (16:01→21:26)
[2020-10-14] MEDS: DEXTROSE 5% LACTATED RINGERS 1,000 ML IV SCH ×2 (00:24→11:41)
[2020-10-14] MEDS: HYDROcod/ACETAMIN 7.5-325 MG/15 ML UDCUP PO PRN ×3 (00:24→21:35)
[2020-10-14] MEDS: HYDROmorphone 2 MG/1 ML VIAL IV PRN ×3 (05:45→17:26)
[2020-10-14] MEDS: PANTOPRAZOLE 40 MG VIAL IV SCH (09:14)
[2020-10-14] MEDS: POTASSIUM PHOS/SOD PHOS 250 MG TABLET PO SCH ×3 (09:14→21:23)
[2020-10-14] MEDS: hydroCHLOROthiazide 12.5 MG CAPSULE PO SCH (09:14)
[2020-10-14] MEDS: ENOXAPARIN 40 MG/0.4 ML SYRINGE SUBCUT SCH (09:14)
[2020-10-14] MEDS ORDERED: BISACODYL 10 MG SUPP RECTAL ONE (16:25)
[2020-10-14] MEDS: hydrALAZINE 20 MG/1 ML VIAL IV PRN (21:26)
[2020-10-15] MEDS: DEXTROSE 5% LACTATED RINGERS 1,000 ML IV SCH ×3 (01:26→21:37)
[2020-10-15 05:06] LABS: Basophils % 0.3 % (0.0-0.8); Eosinophils # 0.2 10*3/uL (0.0-0.87); Hematocrit 28.4 VOL% (42.0-52.0); Hemoglobin 9.7 GM/DL (14.0-18.0); Immature Granulocytes Absolute 0.06 #; Lymphocytes # 0.6 10*3/uL (1.4-4.0); Lymphocytes % 9.8 % (21.2-54.2); Mean Corpuscular HGB Conc 34.2 GM/DL (32-36); Mean Corpuscular Volume 86.9 FL (87-102); Mean Platelet Volume 8.7 FL (9.6-12.0); Monocytes % 17.3 % (1.7-12.7); Neutrophils % 67.6 % (38.7-73.9); Platelet Count 267 T/CUMM (130-400); Red Blood Count 3.27 MC/CUMM (3.8-5.5); Red Cell Distribution Width 15.8 % (9.3-17.3); White Blood Count 5.7 T/CUMM (4-12)
[2020-10-15 05:33] LABS: Albumin 2.8 G/DL (3.4-5.0); Bilirubin,Total 0.7 MG/DL (0.2-1.0); Calcium 8.2 MG/DL (8.5-10.1); Osmolality,Calculated 273.7 MOS/KG (273-304); Total Protein 6.9 G/DL (6.4-8.3)
[2020-10-15] MEDS ORDERED: POTASSIUM CHLORIDE RIDER 20 MEQ in PREMIX 1 EACH IV SCH (07:00)
[2020-10-15 07:12] LABS: Anisocytosis 1+; Band Neutrophils 7 % (0-10); Eosinophils 3 % (0-10); Hypochromasia 1+; Lymphocytes 13 % (20-55); Platelet Estimate Normal; Segmented Neutrophils 65 % (50-85); Target Cells Few; Total Cells Counted 100
[2020-10-15 07:13] LABS: Macrocytosis Slight
[2020-10-15] MEDS: HYDROmorphone 2 MG/1 ML VIAL IV PRN ×3 (07:47→21:48)
[2020-10-15] MEDS ORDERED: MAGNESIUM SULF RIDER 4 GM in PREMIX 1 EACH IV ONE (09:00)
[2020-10-15] MEDS ORDERED: MAGNESIUM SULF INJ 4 GM, POTASSIUM CHLORIDE INJ 50 MEQ in SODIUM CHLORIDE 0.9% 500 ML IV ONE (09:00)
[2020-10-15] MEDS: PANTOPRAZOLE 40 MG VIAL IV SCH (09:22)
[2020-10-15] MEDS: POTASSIUM PHOS/SOD PHOS 250 MG TABLET PO SCH ×3 (09:22→21:36)
[2020-10-15] MEDS: ENOXAPARIN 40 MG/0.4 ML SYRINGE SUBCUT SCH (09:22)
[2020-10-15] MEDS: hydroCHLOROthiazide 12.5 MG CAPSULE PO SCH (09:23)
[2020-10-15] MEDS: FERROUS SULFATE 300 MG/5 ML UDCUP PEG SCH ×2 (09:23→21:36)
[2020-10-15] MEDS: HYDROcod/ACETAMIN 7.5-325 MG/15 ML UDCUP PO PRN ×2 (09:41→16:24)
[2020-10-15] MEDS ORDERED: POTASSIUM CHLORIDE RIDER 10 MEQ in PREMIX 1 EACH IV ONE (14:00)
[2020-10-16 06:10] LABS: Basophils % 0.3 % (0.0-0.8); Eosinophils # 0.2 10*3/uL (0.0-0.87); Eosinophils % 3.1 % (0.00-10.9); Hematocrit 30.5 VOL% (42.0-52.0); Hemoglobin 10.4 GM/DL (14.0-18.0); Immature Granulocytes % 1.2 %; Immature Granulocytes Absolute 0.09 #; Lymphocytes # 0.6 10*3/uL (1.4-4.0); Lymphocytes % 8.2 % (21.2-54.2); Mean Corpuscular HGB Conc 34.1 GM/DL (32-36); Mean Corpuscular Volume 86.6 FL (87-102); Mean Platelet Volume 8.9 FL (9.6-12.0); Monocytes % 12.6 % (1.7-12.7); Neutrophils % 74.6 % (38.7-73.9); Platelet Count 344 T/CUMM (130-400); Red Blood Count 3.52 MC/CUMM (3.8-5.5); Red Cell Distribution Width 15.9 % (9.3-17.3); White Blood Count 7.5 T/CUMM (4-12)
[2020-10-16] MEDS ORDERED: MAGNESIUM SULF RIDER 4 GM in PREMIX 1 EACH IV ONE (06:34)
[2020-10-16 06:47] LABS: Albumin 3.2 G/DL (3.4-5.0); Bilirubin,Total 0.4 MG/DL (0.2-1.0); Calcium 8.5 MG/DL (8.5-10.1); Osmolality,Calculated 265.2 MOS/KG (273-304); Total Protein 7.6 G/DL (6.4-8.3)
[2020-10-16] MEDS: FERROUS SULFATE 300 MG/5 ML UDCUP PEG SCH (08:14)
[2020-10-16] MEDS: POTASSIUM PHOS/SOD PHOS 250 MG TABLET PO SCH ×2 (08:14→16:23)
[2020-10-16] MEDS: hydroCHLOROthiazide 12.5 MG CAPSULE PO SCH (08:14)
[2020-10-16] MEDS: ENOXAPARIN 40 MG/0.4 ML SYRINGE SUBCUT SCH (08:14)
[2020-10-16] MEDS: HYDROcod/ACETAMIN 7.5-325 MG/15 ML UDCUP PO PRN (08:15)
[2020-10-16] MEDS: PANTOPRAZOLE 40 MG VIAL IV SCH (08:19)
[2020-10-16] MEDS ORDERED: MAGNESIUM OXIDE 400 MG TABLET PO SCH ×2 (09:00)
[2020-10-16] MEDS ORDERED: BISACODYL 10 MG SUPP RECTAL ONE (09:00)
[2020-10-16] MEDS ORDERED: MAGNESIUM HYDROXIDE SUSP 30 ML UDCUP PO ONE (09:00)
[2020-10-16] MEDS ORDERED: POTASSIUM CHLORIDE 20 MEQ/15 ML UDCUP PO ONE (09:00)
[2020-10-16] MEDS: hydrALAZINE 20 MG/1 ML VIAL IV PRN (11:18)
[2020-10-16] MEDS: DEXTROSE 5% LACTATED RINGERS 1,000 ML IV SCH (14:25)
[2020-10-16 16:00] VITALS: BP 151/76
[2020-10-16] MEDS ORDERED: POTASSIUM CHLORIDE 20 MEQ/15 ML UDCUP PER TUBE SCH (21:00)
== END 2020-10-16 17:14 | disposition home or self-care (01) | DRG 231 ==
LOC: N.OR 05:53 → N.SDSINP 05:53 → N.ICU 05:53 → N.SDSINP 05:55 → N.ICU 12:59 → N.5E 10-11 13:07
PROVIDERS: ADMIT Surgery; ATTEND Surgery

== ENCOUNTER 2021-02-04 11:56 | Observation (INO) ==
[2021-02-04] MEDS ORDERED: DEXAMETHASONE 10 MG/1 ML VIAL IV STA (12:22)
[2021-02-04] MEDS ORDERED: FAMOTIDINE 20 MG/2 ML VIAL IV STA (12:23)
[2021-02-04] MEDS ORDERED: diphenhydrAMINE 50 MG/1 ML VIAL IV STA (12:23)
[2021-02-04 13:02] LABS: Basophils % 0.7 % (0.0-0.8); Eosinophils # 0.1 10*3/uL (0.0-0.87); Eosinophils % 1.5 % (0.00-10.9); Hematocrit 27.1 VOL% (42.0-52.0); Hemoglobin 8.8 GM/DL (14.0-18.0); Immature Granulocytes % 0.3 %; Immature Granulocytes Absolute 0.02 #; Lymphocytes # 0.9 10*3/uL (1.4-4.0); Lymphocytes % 13.9 % (21.2-54.2); Mean Corpuscular HGB Conc 32.5 GM/DL (32-36); Mean Corpuscular Volume 78.3 FL (87-102); Mean Platelet Volume 7.7 FL (9.6-12.0); Monocytes % 11.8 % (1.7-12.7); Neutrophils % 71.8 % (38.7-73.9); Platelet Count 437 T/CUMM (130-400); Red Blood Count 3.46 MC/CUMM (3.8-5.5); White Blood Count 6.1 T/CUMM (4-12)
[2021-02-04 13:23] LABS: Alanine Aminotransferase 12 U/L (16-61); Albumin 3.6 G/DL (3.4-5.0); Alkaline Phosphatase 74 U/L (45-117); Aspartate Amino Transferase 11 U/L (0-37); Bilirubin,Total < 0.39 MG/DL (0.2-1.0); Blood Urea Nitrogen 25 MG/DL (7-18); Calcium 9.7 MG/DL (8.5-10.1); Carbon Dioxide 29 MMOL/L (21-32); Estimated Glom Filtration Rate 70 ML/MIN; Glucose 83 MG/DL (74-106); Osmolality,Calculated 257.2 MOS/KG (273-304); Potassium 4.1 MMOL/L (3.5-5.1); Sodium 127 MMOL/L (136-145); Total Protein 8.5 G/DL (6.4-8.2)
[2021-02-04] MEDS ORDERED: DEXTROSE 50% 25 GM/50 ML VIAL IV PRN (15:26)
[2021-02-04] MEDS ORDERED: GLUCAGON 1 MG VIAL IM PRN (15:26)
[2021-02-04] MEDS: ENOXAPARIN 60 MG/0.6 ML SYRINGE SUBCUT SCH (18:09)
[2021-02-04] MEDS ORDERED: diphenhydrAMINE 50 MG/1 ML VIAL IV ONE (20:46)
[2021-02-04] MEDS: methylPREDNISolone SOD SUC 40 MG/1 ML VIAL IV SCH (21:13)
[2021-02-04] MEDS: FAMOTIDINE INJ 40 MG in SODIUM CHLORIDE 0.9% 100 ML IV SCH (21:18)
[2021-02-05] MEDS: methylPREDNISolone SOD SUC 40 MG/1 ML VIAL IV SCH ×4 (02:55→20:39)
[2021-02-05 04:07] LABS: Hematocrit 25.5 VOL% (42.0-52.0); Hemoglobin 8.4 GM/DL (14.0-18.0); Immature Granulocytes % 0.5 %; Immature Granulocytes Absolute 0.03 #; Lymphocytes # 0.6 10*3/uL (1.4-4.0); Mean Corpuscular HGB Conc 32.9 GM/DL (32-36); Mean Corpuscular Volume 77.3 FL (87-102); Neutrophils % 87.5 % (38.7-73.9); Platelet Count 458 T/CUMM (130-400); Red Cell Distribution Width 13.9 % (9.3-17.3); White Blood Count 5.6 T/CUMM (4-12)
[2021-02-05 04:27] LABS: Albumin 3.7 G/DL (3.4-5.0); Bilirubin,Total 0.4 MG/DL (0.2-1.0); Calcium 9.8 MG/DL (8.5-10.1); Osmolality,Calculated 261.2 MOS/KG (273-304); Potassium 4.3 MMOL/L (3.5-5.1); Total Protein 8.6 G/DL (6.4-8.2)
[2021-02-05] MEDS: ENOXAPARIN 60 MG/0.6 ML SYRINGE SUBCUT SCH ×2 (04:44→18:07)
[2021-02-05] MEDS ORDERED: amLODIPine 10 MG TABLET PEG SCH (09:00)
[2021-02-05] MEDS: FAMOTIDINE INJ 40 MG in SODIUM CHLORIDE 0.9% 100 ML IV SCH ×2 (10:32→21:02)
[2021-02-05] MEDS: VITAMIN E 1000 UNIT CAPSULE PEG SCH (10:33)
[2021-02-05] MEDS: CHOLECALCIFEROL 1,000 UNIT TABLET PEG SCH (16:52)
[2021-02-05] MEDS: CETIRIZINE 10 MG TABLET PEG SCH (16:52)
[2021-02-05] MEDS: carvediloL 3.125 MG TABLET PEG SCH (20:38)
[2021-02-06] MEDS: methylPREDNISolone SOD SUC 40 MG/1 ML VIAL IV SCH ×2 (03:13→09:30)
[2021-02-06] MEDS: ENOXAPARIN 60 MG/0.6 ML SYRINGE SUBCUT SCH (05:31)
[2021-02-06 05:57] LABS: Basophils % 0.1 % (0.0-0.8); Hematocrit 26.3 VOL% (42.0-52.0); Hemoglobin 8.6 GM/DL (14.0-18.0); Immature Granulocytes % 1.9 %; Immature Granulocytes Absolute 0.25 #; Lymphocytes # 0.5 10*3/uL (1.4-4.0); Lymphocytes % 3.6 % (21.2-54.2); Mean Corpuscular HGB Conc 32.7 GM/DL (32-36); Mean Corpuscular Volume 77.6 FL (87-102); Mean Platelet Volume 8.2 FL (9.6-12.0); Monocytes % 2.5 % (1.7-12.7); Neutrophils % 91.9 % (38.7-73.9); Platelet Count 478 T/CUMM (130-400); Red Blood Count 3.39 MC/CUMM (3.8-5.5); Red Cell Distribution Width 14.1 % (9.3-17.3); White Blood Count 13.3 T/CUMM (4-12)
[2021-02-06 06:19] LABS: Hypochromasia 1+; Lymphocytes 2 % (20-55); Microcytosis 1+; Platelet Estimate Adequate; Segmented Neutrophils 97 % (50-85); Total Cells Counted 100
[2021-02-06 06:24] LABS: Calcium 9.8 MG/DL (8.5-10.1); Osmolality,Calculated 263.5 MOS/KG (273-304); Potassium 4.5 MMOL/L (3.5-5.1)
[2021-02-06] MEDS ORDERED: SODIUM CHLORIDE 0.9% 500 ML IV ONE ×2 (06:54→07:00)
[2021-02-06] MEDS: VITAMIN E 1000 UNIT CAPSULE PEG SCH (09:32)
[2021-02-06] MEDS: CHOLECALCIFEROL 1,000 UNIT TABLET PEG SCH (09:33)
[2021-02-06] MEDS: CETIRIZINE 10 MG TABLET PEG SCH (09:33)
[2021-02-06] MEDS: carvediloL 3.125 MG TABLET PEG SCH (09:34)
[2021-02-06] MEDS: FAMOTIDINE INJ 40 MG in SODIUM CHLORIDE 0.9% 100 ML IV SCH (09:39)
[2021-02-06 12:23] VITALS: BP 117/56
== END 2021-02-06 13:30 | disposition home or self-care (01) ==
LOC: N.ED 11:56 → N.EDINP 11:56 → N.4E 16:01
PROVIDERS: ADMIT Hospitalist; ATTEND Hospitalist

== ENCOUNTER 2021-05-19 08:29 | Inpatient (IN) ==
[2021-05-19] MEDS ORDERED: SODIUM CHLORIDE 0.9% 1,000 ML IV STA (09:44)
[2021-05-19 10:25] LABS: Basophils % 0.2 % (0.0-0.8); Hematocrit 25.4 VOL% (42.0-52.0); Hemoglobin 8.2 GM/DL (14.0-18.0); Immature Granulocytes % 0.5 %; Immature Granulocytes Absolute 0.08 #; Lymphocytes # 0.8 10*3/uL (1.4-4.0); Lymphocytes % 4.9 % (21.2-54.2); Mean Corpuscular HGB Conc 32.3 GM/DL (32-36); Mean Corpuscular Volume 75.8 FL (87-102); Mean Platelet Volume 8.3 FL (9.6-12.0); Monocytes % 6.1 % (1.7-12.7); Neutrophils % 88.3 % (38.7-73.9); Platelet Count 774 T/CUMM (130-400); Red Blood Count 3.35 MC/CUMM (3.8-5.5); Red Cell Distribution Width 16.7 % (9.3-17.3); White Blood Count 15.9 T/CUMM (4-12)
[2021-05-19] MEDS ORDERED: hydrALAZINE 20 MG/1 ML VIAL IV STA (10:27)
[2021-05-19] MEDS ORDERED: hydrALAZINE 20 MG/1 ML VIAL ONE (10:28)
[2021-05-19 10:44] LABS: Hypochromasia 1+; Lymphocytes 10 % (20-55); Microcytosis 1+; Segmented Neutrophils 85 % (50-85); Total Cells Counted 100
[2021-05-19 10:45] LABS: Platelet Estimate Increased; Target Cells Slight
[2021-05-19 10:49] LABS: Alanine Aminotransferase 23 U/L (16-61); Albumin 2.9 G/DL (3.4-5.0); Alkaline Phosphatase 97 U/L (45-117); Amylase 57 U/L (25-115); Aspartate Amino Transferase 16 U/L (0-37); Bilirubin,Total < 0.39 MG/DL (0.20-1.00); Blood Urea Nitrogen 29 MG/DL (7-18); Calcium 10.7 MG/DL (8.5-10.1); Carbon Dioxide 30 MMOL/L (21-32); Estimated Glom Filtration Rate 90 ML/MIN; Glucose 122 MG/DL (74-106); Osmolality,Calculated 263.1 MOS/KG (273-304); Potassium 3.8 MMOL/L (3.5-5.1); Sodium 128 MMOL/L (136-145); Total Protein 9.1 G/DL (6.4-8.2)
[2021-05-19 12:23] LABS: Bilirubin,Urine Negative (Negative); Blood, Urine Negative (Negative); Glucose,Urine (UA) Negative (Negative); Ketones,Urine Negative (Negative); Mucus,Urine Occasional /LPF (Occasional); Nitrite,Urine Negative (Negative); Protein,Urine Negative; Squamous Epithelial Cell,Urine Occasional /HPF (0-10); Urine Appearance CLEAR (Clear); Urine Color Yellow (Yellow); Urine Specific Gravity 1.031 (1.001-1.035); Urine Urobilinogen < 2.0 EU/DL (0.2-1.0)
[2021-05-19] MEDS ORDERED: DEXTROSE 50% 25 GM/50 ML VIAL IV PRN (12:55)
[2021-05-19] MEDS ORDERED: ONDANSETRON 4 MG/2 ML VIAL IV PRN (12:55)
[2021-05-19] MEDS ORDERED: GLUCAGON 1 MG VIAL IM PRN (12:55)
[2021-05-19] MEDS ORDERED: ACETAMINOPHEN 325 MG TABLET PER TUBE PRN (12:55)
[2021-05-19] MEDS: SODIUM CHLORIDE 0.9% 1,000 ML IV SCH (16:07)
[2021-05-19] MEDS: MORPHINE 2 MG/1 ML SYRINGE IV PRN (22:09)
[2021-05-20] MEDS: MORPHINE 2 MG/1 ML SYRINGE IV PRN ×5 (02:41→22:36)
[2021-05-20] MEDS: SODIUM CHLORIDE 0.9% 1,000 ML IV SCH ×3 (02:41→18:20)
[2021-05-20 07:07] LABS: Basophils # 0.1 10*3/uL (0.0-0.2); Basophils % 0.3 % (0.0-0.8); Eosinophils % 0.2 % (0.00-10.9); Hematocrit 23.7 VOL% (42.0-52.0); Hemoglobin 7.2 GM/DL (14.0-18.0); Immature Granulocytes % 1.5 %; Lymphocytes # 0.8 10*3/uL (1.4-4.0); Mean Corpuscular HGB Conc 30.4 GM/DL (32-36); Mean Corpuscular Volume 77.7 FL (87-102); Mean Platelet Volume 8.6 FL (9.6-12.0); Monocytes % 8.5 % (1.7-12.7); Neutrophils % 85.5 % (38.7-73.9); Platelet Count 710 T/CUMM (130-400); Red Blood Count 3.05 MC/CUMM (3.8-5.5); White Blood Count 19.6 T/CUMM (4-12)
[2021-05-20 07:39] LABS: % Iron Saturation 5.8 % (18-50); Ferritin 840.7 ng/ml (26-388)
[2021-05-20 07:40] LABS: Albumin 2.5 G/DL (3.4-5.0); Bilirubin,Total 0.7 MG/DL (0.20-1.00); Calcium 9.7 MG/DL (8.5-10.1); Osmolality,Calculated 267.4 MOS/KG (273-304); Potassium 3.7 MMOL/L (3.5-5.1); Total Protein 7.6 G/DL (6.4-8.2)
[2021-05-20 08:14] LABS: Anisocytosis 2+; Hypochromasia 4+; Target Cells 1+
[2021-05-20 08:15] LABS: Microcytosis 3+; Platelet Estimate Increased; Polychromasia Slight
[2021-05-20] MEDS ORDERED: MORPHINE 2 MG/1 ML SYRINGE IV SCH (18:00)
[2021-05-21] MEDS: SODIUM CHLORIDE 0.9% 1,000 ML IV SCH (01:05)
[2021-05-21] MEDS: MORPHINE 2 MG/1 ML SYRINGE IV PRN ×4 (02:52→23:08)
[2021-05-21 06:29] LABS: Basophils # 0.1 10*3/uL (0.0-0.2); Basophils % 0.4 % (0.0-0.8); Eosinophils # 0.1 10*3/uL (0.0-0.87); Eosinophils % 0.3 % (0.00-10.9); Hematocrit 24.9 VOL% (42.0-52.0); Hemoglobin 7.7 GM/DL (14.0-18.0); Immature Granulocytes % 0.7 %; Immature Granulocytes Absolute 0.12 #; Lymphocytes # 0.7 10*3/uL (1.4-4.0); Lymphocytes % 4.1 % (21.2-54.2); Mean Corpuscular HGB Conc 30.9 GM/DL (32-36); Mean Corpuscular Volume 77.3 FL (87-102); Mean Platelet Volume 8.8 FL (9.6-12.0); Neutrophils % 84.5 % (38.7-73.9); Platelet Count 718 T/CUMM (130-400); Red Blood Count 3.22 MC/CUMM (3.8-5.5); White Blood Count 17.2 T/CUMM (4-12)
[2021-05-21 06:32] LABS: Calcium 10.2 MG/DL (8.5-10.1); Osmolality,Calculated 263.7 MOS/KG (273-304); Potassium 3.4 MMOL/L (3.5-5.1)
[2021-05-21 06:53] LABS: Hypochromasia 1+; Lymphocytes 3 % (20-55); Microcytosis 1+; Platelet Estimate Increased; Segmented Neutrophils 83 % (50-85); Total Cells Counted 100
[2021-05-21] MEDS: FERRIC GLUCONATE COMPLEX 125 MG in SODIUM CHLORIDE 0.9% 100 ML IV SCH (11:00)
[2021-05-21] MEDS: SODIUM CHLOR 0.9% KCL 40 MEQ 40 MEQ/1,000 ML BAG IV SCH ×2 (18:13→23:14)
[2021-05-22] MEDS: MORPHINE 2 MG/1 ML SYRINGE IV PRN ×4 (05:01→23:23)
[2021-05-22 05:21] LABS: Basophils # 0.1 10*3/uL (0.0-0.2); Basophils % 0.3 % (0.0-0.8); Eosinophils # 0.1 10*3/uL (0.0-0.87); Eosinophils % 0.8 % (0.00-10.9); Hematocrit 23.4 VOL% (42.0-52.0); Hemoglobin 7.2 GM/DL (14.0-18.0); Immature Granulocytes % 0.7 %; Lymphocytes # 0.8 10*3/uL (1.4-4.0); Lymphocytes % 5.1 % (21.2-54.2); Mean Corpuscular HGB Conc 30.8 GM/DL (32-36); Mean Corpuscular Volume 77.5 FL (87-102); Mean Platelet Volume 8.8 FL (9.6-12.0); Monocytes % 11.6 % (1.7-12.7); Neutrophils % 81.5 % (38.7-73.9); Platelet Count 670 T/CUMM (130-400); Red Blood Count 3.02 MC/CUMM (3.8-5.5); Red Cell Distribution Width 16.8 % (9.3-17.3)
[2021-05-22 05:37] LABS: Calcium 10.3 MG/DL (8.5-10.1); Osmolality,Calculated 269.2 MOS/KG (273-304); Potassium 3.7 MMOL/L (3.5-5.1)
[2021-05-22] MEDS ORDERED: MAGNESIUM SULF RIDER 2 GM/50 ML PREMIX IV PRN (08:25)
[2021-05-22] MEDS ORDERED: MAGNESIUM SULF RIDER 4 GM/100 ML PREMIX IV PRN (08:25)
[2021-05-22] MEDS: FERRIC GLUCONATE COMPLEX 125 MG in SODIUM CHLORIDE 0.9% 100 ML IV SCH (10:17)
[2021-05-22] MEDS: SODIUM CHLOR 0.9% KCL 40 MEQ 40 MEQ/1,000 ML BAG IV SCH (11:40)
[2021-05-23] MEDS: MORPHINE 2 MG/1 ML SYRINGE IV PRN ×5 (02:43→22:11)
[2021-05-23] MEDS: SODIUM CHLOR 0.9% KCL 40 MEQ 40 MEQ/1,000 ML BAG IV SCH (03:12)
[2021-05-23 05:16] LABS: Basophils # 0.1 10*3/uL (0.0-0.2); Basophils % 0.5 % (0.0-0.8); Eosinophils # 0.2 10*3/uL (0.0-0.87); Eosinophils % 1.9 % (0.00-10.9); Hematocrit 22.5 VOL% (42.0-52.0); Hemoglobin 6.7 GM/DL (14.0-18.0); Immature Granulocytes % 0.6 %; Immature Granulocytes Absolute 0.07 #; Lymphocytes # 0.8 10*3/uL (1.4-4.0); Lymphocytes % 6.4 % (21.2-54.2); Mean Corpuscular HGB Conc 29.8 GM/DL (32-36); Mean Corpuscular Volume 78.9 FL (87-102); Mean Platelet Volume 8.2 FL (9.6-12.0); Monocytes % 11.2 % (1.7-12.7); Neutrophils % 79.4 % (38.7-73.9); Platelet Count 624 T/CUMM (130-400); Red Blood Count 2.85 MC/CUMM (3.8-5.5); Red Cell Distribution Width 16.7 % (9.3-17.3); White Blood Count 12.2 T/CUMM (4-12)
[2021-05-23 06:03] LABS: Calcium 9.9 MG/DL (8.5-10.1); Osmolality,Calculated 269.2 MOS/KG (273-304); Potassium 4.2 MMOL/L (3.5-5.1)
[2021-05-23 08:09] LABS: Hypochromasia 3+
[2021-05-23 08:10] LABS: Microcytosis 2+; Platelet Estimate Increased
[2021-05-23] MEDS ORDERED: SODIUM CHLORIDE 0.9% 1,000 ML IV PRN (08:24)
[2021-05-23] MEDS ORDERED: MYLANTA/LIDO VISC 2:1 300 ML BOTTLE SWISH/SWAL PRN (12:08)
[2021-05-23] MEDS ORDERED: ONDANSETRON 4 MG/2 ML VIAL IV PRN (12:08)
[2021-05-23] MEDS ORDERED: PROMETHAZINE INJ 25 MG in SODIUM CHLORIDE 0.9% 50 ML IV PRN (12:08)
[2021-05-23] MEDS ORDERED: MOISTURIZING CREAM (EUCERIN) 106 GM JAR TOP PRN (13:06)
[2021-05-23] MEDS: MYLANTA/LIDO VISC/DIPH 300 ML BOTTLE SWISH/SPIT SCH ×3 (16:28→21:06)
[2021-05-23] MEDS: BACITRACIN OINT 0.9 GM PACK TOP SCH ×3 (16:28→20:54)
[2021-05-23] MEDS: DEXT 5% NACL 0.45% KCL 20 MEQ 20 MEQ/1,000 ML BAG IV SCH (16:42)
[2021-05-23] MEDS: FERRIC GLUCONATE COMPLEX 125 MG in SODIUM CHLORIDE 0.9% 100 ML IV SCH (16:42)
[2021-05-23] MEDS: MYLANTA/LIDO VISC 2:1 300 ML BOTTLE SWISH/SPIT PRN ×2 (16:43→20:54)
[2021-05-23] MEDS: AMMONIUM LACTATE 12% LOTION 240 ML BOTTLE TOP PRN (21:00)
[2021-05-24] MEDS: MORPHINE 2 MG/1 ML SYRINGE IV PRN ×5 (02:41→22:18)
[2021-05-24 05:38] LABS: Basophils # 0.1 10*3/uL (0.0-0.2); Basophils % 0.3 % (0.0-0.8); Eosinophils # 0.3 10*3/uL (0.0-0.87); Eosinophils % 1.7 % (0.00-10.9); Hematocrit 28.6 VOL% (42.0-52.0); Hemoglobin 9.3 GM/DL (14.0-18.0); Immature Granulocytes % 0.8 %; Immature Granulocytes Absolute 0.11 #; Lymphocytes # 0.6 10*3/uL (1.4-4.0); Lymphocytes % 4.3 % (21.2-54.2); Mean Corpuscular HGB Conc 32.5 GM/DL (32-36); Mean Corpuscular Volume 77.9 FL (87-102); Mean Platelet Volume 8.7 FL (9.6-12.0); Monocytes % 12.4 % (1.7-12.7); Neutrophils % 80.5 % (38.7-73.9); Platelet Count 619 T/CUMM (130-400); Red Blood Count 3.67 MC/CUMM (3.8-5.5); Red Cell Distribution Width 16.4 % (9.3-17.3); White Blood Count 14.3 T/CUMM (4-12)
[2021-05-24 06:38] LABS: Anisocytosis 2+; Band Neutrophils 1 % (0-10); Lymphocytes 2 % (20-55); Platelet Estimate Increased; Segmented Neutrophils 83 % (50-85); Target Cells Few; Total Cells Counted 100
[2021-05-24] MEDS: DEXT 5% NACL 0.45% KCL 20 MEQ 20 MEQ/1,000 ML BAG IV SCH ×2 (07:19→21:12)
[2021-05-24] MEDS: hydrALAZINE 20 MG/1 ML VIAL IV PRN (08:15)
[2021-05-24] MEDS: MYLANTA/LIDO VISC/DIPH 300 ML BOTTLE SWISH/SPIT SCH ×4 (08:15→20:23)
[2021-05-24] MEDS: BACITRACIN OINT 0.9 GM PACK TOP SCH ×3 (08:15→20:23)
[2021-05-24] MEDS ORDERED: BISACODYL 10 MG SUPP RECTAL ONE (11:05)
[2021-05-24] MEDS: FERRIC GLUCONATE COMPLEX 125 MG in SODIUM CHLORIDE 0.9% 100 ML IV SCH (11:30)
[2021-05-24] MEDS: MYLANTA/LIDO VISC 2:1 300 ML BOTTLE SWISH/SPIT PRN (20:23)
[2021-05-25] MEDS: MORPHINE 2 MG/1 ML SYRINGE IV PRN ×5 (02:35→23:41)
[2021-05-25 05:30] LABS: Basophils % 0.2 % (0.0-0.8); Eosinophils # 0.2 10*3/uL (0.0-0.87); Eosinophils % 1.8 % (0.00-10.9); Hematocrit 28.8 VOL% (42.0-52.0); Hemoglobin 9.4 GM/DL (14.0-18.0); Immature Granulocytes % 0.9 %; Immature Granulocytes Absolute 0.12 #; Lymphocytes # 0.7 10*3/uL (1.4-4.0); Lymphocytes % 5.2 % (21.2-54.2); Mean Corpuscular HGB Conc 32.6 GM/DL (32-36); Mean Corpuscular Volume 78.3 FL (87-102); Mean Platelet Volume 9.7 FL (9.6-12.0); Monocytes % 11.8 % (1.7-12.7); Neutrophils % 80.1 % (38.7-73.9); Platelet Count 509 T/CUMM (130-400); Red Blood Count 3.68 MC/CUMM (3.8-5.5); White Blood Count 12.9 T/CUMM (4-12)
[2021-05-25 05:57] LABS: Calcium 10.3 MG/DL (8.5-10.1); Osmolality,Calculated 263.5 MOS/KG (273-304)
[2021-05-25] MEDS: DEXT 5% NACL 0.45% KCL 20 MEQ 20 MEQ/1,000 ML BAG IV SCH (09:49)
[2021-05-25] MEDS: MYLANTA/LIDO VISC/DIPH 300 ML BOTTLE SWISH/SPIT SCH ×4 (09:50→20:08)
[2021-05-25] MEDS: FERRIC GLUCONATE COMPLEX 125 MG in SODIUM CHLORIDE 0.9% 100 ML IV SCH (09:50)
[2021-05-25] MEDS: BACITRACIN OINT 0.9 GM PACK TOP SCH ×3 (09:50→20:08)
[2021-05-25] MEDS ORDERED: fentaNYL 12 MCG/HR PATCH TRANSDERM SCH (13:00)
[2021-05-25] MEDS: methylPREDNISolone SOD SUC 125 MG/2 ML VIAL IV SCH (15:33)
[2021-05-26] MEDS: DEXT 5% NACL 0.45% KCL 20 MEQ 20 MEQ/1,000 ML BAG IV SCH ×2 (00:09→14:49)
[2021-05-26] MEDS: methylPREDNISolone SOD SUC 125 MG/2 ML VIAL IV SCH (00:18)
[2021-05-26] MEDS: MORPHINE 2 MG/1 ML SYRINGE IV PRN ×5 (05:58→23:39)
[2021-05-26 06:08] LABS: Basophils % 0.1 % (0.0-0.8); Hematocrit 31.3 VOL% (42.0-52.0); Hemoglobin 10.1 GM/DL (14.0-18.0); Immature Granulocytes % 0.9 %; Immature Granulocytes Absolute 0.08 #; Lymphocytes # 0.6 10*3/uL (1.4-4.0); Lymphocytes % 6.5 % (21.2-54.2); Mean Corpuscular HGB Conc 32.3 GM/DL (32-36); Mean Corpuscular Volume 79.4 FL (87-102); Mean Platelet Volume 8.4 FL (9.6-12.0); Monocytes % 1.1 % (1.7-12.7); Neutrophils % 91.4 % (38.7-73.9); Platelet Count 594 T/CUMM (130-400); Red Blood Count 3.94 MC/CUMM (3.8-5.5); Red Cell Distribution Width 17.2 % (9.3-17.3); White Blood Count 8.5 T/CUMM (4-12)
[2021-05-26 06:32] LABS: Osmolality,Calculated 271.2 MOS/KG (273-304); Potassium 4.4 MMOL/L (3.5-5.1)
[2021-05-26] MEDS: MYLANTA/LIDO VISC/DIPH 300 ML BOTTLE SWISH/SPIT SCH ×4 (08:08→20:12)
[2021-05-26] MEDS: BACITRACIN OINT 0.9 GM PACK TOP SCH ×3 (08:09→20:13)
[2021-05-26] MEDS: FERRIC GLUCONATE COMPLEX 125 MG in SODIUM CHLORIDE 0.9% 100 ML IV SCH (08:40)
[2021-05-26 08:58] LABS: Anisocytosis 2+; Band Neutrophils 5 % (0-10); Burr Cells 1+; Hypochromasia 1+; Lymphocytes 7 % (20-55); Platelet Estimate Increased; Segmented Neutrophils 88 % (50-85); Target Cells Few; Total Cells Counted 100
[2021-05-26] MEDS ORDERED: fentaNYL 25 MCG/HR PATCH TRANSDERM SCH (09:00)
[2021-05-27] MEDS: MORPHINE 2 MG/1 ML SYRINGE IV PRN ×2 (03:38→07:08)
[2021-05-27] MEDS: DEXT 5% NACL 0.45% KCL 20 MEQ 20 MEQ/1,000 ML BAG IV SCH (05:46)
[2021-05-27 06:13] LABS: Osmolality,Calculated 282.5 MOS/KG (273-304)
[2021-05-27] MEDS: hydrALAZINE 20 MG/1 ML VIAL IV PRN (09:24)
[2021-05-27] MEDS: BACITRACIN OINT 0.9 GM PACK TOP SCH ×3 (09:25→21:53)
[2021-05-27] MEDS: MYLANTA/LIDO VISC/DIPH 300 ML BOTTLE SWISH/SPIT SCH ×4 (09:28→22:12)
[2021-05-27] MEDS: AMMONIUM LACTATE 12% LOTION 240 ML BOTTLE TOP PRN ×3 (09:30→16:41)
[2021-05-27] MEDS: FERRIC GLUCONATE COMPLEX 125 MG in SODIUM CHLORIDE 0.9% 100 ML IV SCH (10:22)
[2021-05-27] MEDS: MORPHINE 10 MG/5 ML UDCUP PO PRN ×3 (11:47→21:53)
[2021-05-28] MEDS: MORPHINE 10 MG/1 ML VIAL IV PRN ×3 (00:50→20:26)
[2021-05-28] MEDS: MORPHINE 10 MG/5 ML UDCUP PO PRN ×3 (05:36→15:40)
[2021-05-28 07:48] LABS: Calcium 9.9 MG/DL (8.5-10.1); Osmolality,Calculated 264.7 MOS/KG (273-304); Potassium 3.9 MMOL/L (3.5-5.1)
[2021-05-28] MEDS: MYLANTA/LIDO VISC/DIPH 300 ML BOTTLE SWISH/SPIT SCH ×4 (09:55→20:18)
[2021-05-28] MEDS: BACITRACIN OINT 0.9 GM PACK TOP SCH ×3 (09:56→20:27)
[2021-05-28] MEDS: fentaNYL 50 MCG/HR PATCH TRANSDERM SCH (09:57)
[2021-05-28] MEDS: FERRIC GLUCONATE COMPLEX 125 MG in SODIUM CHLORIDE 0.9% 100 ML IV SCH (10:04)
[2021-05-28] MEDS: GABAPENTIN 300 MG CAPSULE PEG SCH (20:27)
[2021-05-28] MEDS: AMMONIUM LACTATE 12% LOTION 240 ML BOTTLE TOP PRN (20:53)
[2021-05-29] MEDS: MORPHINE 10 MG/1 ML VIAL IV PRN ×2 (03:18→08:13)
[2021-05-29] MEDS: AMMONIUM LACTATE 12% LOTION 240 ML BOTTLE TOP PRN ×2 (03:22→20:37)
[2021-05-29] MEDS: MORPHINE 10 MG/5 ML UDCUP PO PRN ×4 (05:22→20:12)
[2021-05-29] MEDS: MYLANTA/LIDO VISC/DIPH 300 ML BOTTLE SWISH/SPIT SCH ×4 (07:57→20:05)
[2021-05-29] MEDS: BACITRACIN OINT 0.9 GM PACK TOP SCH ×3 (08:15→20:12)
[2021-05-29] MEDS: GABAPENTIN 300 MG CAPSULE PEG SCH ×3 (08:15→20:12)
[2021-05-29] MEDS: FERRIC GLUCONATE COMPLEX 125 MG in SODIUM CHLORIDE 0.9% 100 ML IV SCH (12:16)
[2021-05-30] MEDS: MORPHINE 10 MG/5 ML UDCUP PO PRN (03:23)
[2021-05-30] MEDS: MORPHINE 10 MG/1 ML VIAL IV PRN ×5 (04:10→19:45)
[2021-05-30] MEDS: BACITRACIN OINT 0.9 GM PACK TOP SCH ×3 (09:02→20:07)
[2021-05-30] MEDS: GABAPENTIN 300 MG CAPSULE PEG SCH ×3 (09:02→21:20)
[2021-05-30] MEDS: FERRIC GLUCONATE COMPLEX 125 MG in SODIUM CHLORIDE 0.9% 100 ML IV SCH (09:02)
[2021-05-30] MEDS: MYLANTA/LIDO VISC/DIPH 300 ML BOTTLE SWISH/SPIT SCH ×4 (09:03→20:07)
[2021-05-31] MEDS: MORPHINE 10 MG/1 ML VIAL IV PRN (01:38)
[2021-05-31] MEDS ORDERED: BISACODYL 10 MG SUPP RECTAL ONE (07:58)
[2021-05-31] MEDS: MORPHINE 10 MG/5 ML UDCUP PO PRN ×2 (09:02→13:45)
[2021-05-31] MEDS: GABAPENTIN 300 MG CAPSULE PEG SCH (09:03)
[2021-05-31] MEDS: MYLANTA/LIDO VISC/DIPH 300 ML BOTTLE SWISH/SPIT SCH ×2 (09:04→12:49)
[2021-05-31] MEDS: BACITRACIN OINT 0.9 GM PACK TOP SCH (09:04)
[2021-05-31] MEDS: fentaNYL 50 MCG/HR PATCH TRANSDERM SCH (09:05)
[2021-05-31] MEDS: FERRIC GLUCONATE COMPLEX 125 MG in SODIUM CHLORIDE 0.9% 100 ML IV SCH (09:56)
[2021-05-31] MEDS ORDERED: HEPARIN LOCK FLUSH 500 UNIT/5 ML SYRINGE IV ONE (10:52)
[2021-05-31 12:01] VITALS: BP 129/74
== END 2021-05-31 13:53 | disposition hospice, home (50) | DRG 247 ==
LOC: N.ED 08:29 → N.EDINP 08:29 → N.4E 15:52 → SUATTDRO 05-20 15:16
PROVIDERS: ADMIT Internal Medicine; ATTEND Internal Medicine